=== PATIENT | male | born 1955 | race Caucasian/White ===

== ENCOUNTER 2017-08-11 04:11 | Emergency (ER) | payer SELFPAY ==
[2017-08-11] MEDS ORDERED: Naloxone HCl 0.4 mg/ml Vial ONE ×2 (05:21→09:03)
--- NOTE | 2017-08-11 09:26 | RAD ---
THREE VIEWS LEFT SHOULDER: History: Fall at home with left shoulder pain. FINDINGS: Three views of the left shoulder shows no evidence of acute fracture or dislocation. No soft tissue s welling is seen. No degenerative changes are present. IMPRESSION: Unremarkable exam. POS: [facility]
--- NOTE | 2017-08-11 09:40 | RAD ---
SINGLE VIEW OF THE CHEST: Comparison: 03-25-17 History: Dyspnea. FINDINGS: Single view of the chest shows a normal sized cardiomediastinal silhouette. Interstitial markings are stable. There may be a superimposed infiltrate in the mid portion of the right lung. No pleural effu genesis is seen. IMPRESSION: 1. Diffuse interstitial lung disease. 2. Superimposed infiltrate in the right mid thorax. POS: [facility]
[2017-08-11] MEDS ORDERED: Ketorolac Tromethamine 30 MG/ML VIAL ONE (10:24)
[2017-08-11] MEDS ORDERED: cefTRIAXone\\ROCEPHIN 1 GM, Syringe 0.4 ML in Sterile Water 9.6 ML SLOW IVP ONE (10:45)
== END 2017-08-11 11:59 | disposition home or self-care (01) ==
LOC: ERS 04:11
DX: T40.601A Poisoning by unspecified narcotics, accidental (unintentional), initial encounter (principal); M25.512 Pain in left shoulder; J18.9 Pneumonia, unspecified organism; F32.9 Major depressive disorder, single episode, unspecified; F17.200 Nicotine dependence, unspecified, uncomplicated; E78.5 Hyperlipidemia, unspecified; I50.9 Heart failure, unspecified; J44.9 Chronic obstructive pulmonary disease, unspecified; G62.9 Polyneuropathy, unspecified
CPT/HCPCS: 71045; 93005; 96365; 96375; A4216; J0696; J1885; J2310

== ENCOUNTER 2018-03-06 03:02 | Emergency (ER) | payer MEDICARE, OTHER ==
[2018-03-06] MEDS ORDERED: Atropine Sulfate 1 mg/10 ml Syringe ONE (03:09)
[2018-03-06] MEDS ORDERED: DOPamine 400 MG/D5W 250 ML 250 ML ONE (03:11)
[2018-03-06] MEDS ORDERED: Calcium Gluc 4.6 MEQ/10 ML (100 MG/ML) ONE (03:16)
[2018-03-06 03:19] LABS: Base Excess-Venous -4.7 mmol/L (0 (+/- 2.5)); Calcium, Ionized 1.17 mmol/L (1.12-1.32); Hemoglobin - Calc 12.4 g/dL (12.0-18.0); O2 Tension (PvO2) 44.9 mmHg (35.0-45.0); Potassium 3.3 mmol/L (3.4-4.7); T. Carbon Dioxide 21.1 mmol/L (1.0-85.0); pH (Venous) 7.365 (7.35-7.45); vO2 Saturation-calc 79.5 % (94-98)
[2018-03-06 03:26] LABS: #Basophils 0.1 thou/uL (0.0-0.2); #Eosinphils 1.1 thou/uL (0.0-0.7); #Lymphocytes 3.3 thou/uL (1.20-3.40); #Monocytes 0.7 thou/uL (0.11-0.59); #Neutrophils 6.1 thou/uL (1.40-6.50); %Basophils 0.8 % (0.0-1.0); %Eosinophils 9.3 % (0.0-10.0); %Lymphocytes 29.4 % (21.0-51.0); %Monocytes 6.2 % (0.0-10.0); %Neutrophils 54.3 % (42.0-75.0); Hemoglobin 12.3 g/dL (14.0-18.0); Mean Corpuscular HGB CONC 33.8 g/dL (32.0-36.0); Mean Corpuscular Hemoglobin 30.6 pg (27.0-31.0); Mean Corpuscular Volume 90.6 fL (78.0-98.0); Mean Platelet Volume 7.5 fL (7.4-10.4); Platelet Count 249 thou/uL (130-400); RBC Distribution Width 12.6 % (11.5-14.5); Red Blood Cell (RBC) Count 4.03 mill/uL (4.70-6.10); White Blood Cell (WBC) Count 11.3 thou/uL (4.8-10.8)
[2018-03-06] MEDS ORDERED: cefTRIAXone\\ROCEPHIN 1 GM VIAL ONE (03:41)
[2018-03-06] MEDS ORDERED: Piperacillin/Tazobactam 3.375 GM VIAL ONE (03:42)
[2018-03-06 03:43] LABS: ALT (SGPT) 11 U/L (8-55); AST (SGOT) 10 U/L (5-34); Acetaminophen Less than 6.0 mcg/mL (10.0-30.0); Albumin 3.7 g/dL (3.4-4.8); Alcohol Less than 10 mg/dL (Less than 10); Alkaline Phosphatase 82 U/L (40-150); Anion Gap 16 mmol/L (10-20); BUN (Urea Nitrogen) 17 mg/dL (8.4-25.7); Bilirubin, Total 0.2 mg/dL (0.2-1.2); Calc. Creatinine Clearance 0 mL/min (70-130); Carbon Dioxide 16 mmol/L (23-31); Chloride 112 mmol/L (98-107); Estimated GFR-MDRD 56; Globulin 2.9 g/dL (2.4-3.5); Glucose 162 mg/dL (80-115); Potassium 3.4 mmol/L (3.5-5.1); Protein, Total 6.6 g/dL (5.8-8.1); Salicylate Less than 8.0 mg/dL (15.0-30.0); Sodium 141 mmol/L (136-145)
--- NOTE | 2018-03-12 13:23 | EKG ---
Test Reason : Blood Pressure : / mmHG Vent. Rate : 043 BPM Atrial Rate : 053 BPM P-R Int : 000 ms QRS Dur : 142 ms QT Int : 526 ms P-R-T Axes : 000 -19 092 degrees QTc Int : 444 ms Wide QRS rhythm Left bundle branch block Abnormal ECG Confirmed by FLORECITA ANTONY M.D. ([id number]), managing editor SOLA DIEZ ([id number] on 03/12/2018 1:23:20 PM Referred By: Confirmed By:FLORECITA ANTONY M.D.
== END 2018-03-06 08:08 | disposition expired ==
LOC: ERS 03:02
DX: I46.9 Cardiac arrest, cause unspecified (principal); E78.5 Hyperlipidemia, unspecified; J44.9 Chronic obstructive pulmonary disease, unspecified; F32.9 Major depressive disorder, single episode, unspecified; F17.210 Nicotine dependence, cigarettes, uncomplicated; F17.200 Nicotine dependence, unspecified, uncomplicated; G62.9 Polyneuropathy, unspecified; I50.9 Heart failure, unspecified; Z85.828 Personal history of other malignant neoplasm of skin
CPT/HCPCS: 31500; 36415; 36556; 80053; 80307; 82140; 82330; 82803; 85025; 92950; 92953; 93005; 96365; 96368; 96375; 96376; J0461; J0696; J1265; J2543